=== PATIENT | male | born 1965 | race Caucasian/White ===

== ENCOUNTER 2023-12-15 06:18 | Observation (INO) ==
[~2023-12-15 06:18] MED LIST: Metoclopramide 5 MG/ML VIAL (10 mg) IV PRN; NS 0.45% 1000 ml BAG 1,000 ML IV SCH; Naloxone 0.4 mg VIAL 0.4 mg/ml 1 ml VIAL IV PRN; Ondansetron 4 mg VIAL 2 MG/ML 2 ml VIAL IV PRN; ROPIVACAINE 5 MG/ML 30 ML BTL (0.5%) ONE; fentaNYL 100 mcg/2 ml 50 MCG/ML VIAL IV PRN
[2023-12-15] MEDS ORDERED: ROPIVACAINE 5 MG/ML 30 ML BTL (0.5%) ONE ×2 (06:46→07:22)
[2023-12-15] MEDS ORDERED: Midazolam 2 mg/2 ml VIAL 1 mg/ml 2 ml VIAL (2 mg) ONE ×2 (06:47→07:22)
[2023-12-15] MEDS ORDERED: fentaNYL 100 mcg/2 ml 50 MCG/ML VIAL ONE ×2 (06:47→07:22)
[2023-12-15] MEDS ORDERED: Lidocaine 2% PF 5 ML VIAL ONE ×3 (06:48→07:50)
[2023-12-15] MEDS ORDERED: Phenylephrine IV 10 MG/ML 1 ml VIAL ONE (06:48)
[2023-12-15] MEDS: Buffered Lidocaine 1% SYRIN 1 ml INTRADERM ONE (06:49)
[2023-12-15] MEDS ORDERED: Tranexamic Acid 1 GM/100ML BAG 2,000 MG/200 ML BAG IV ONE (07:04)
[2023-12-15] MEDS ORDERED: ceFAZolin 2 GM PREMIX 2 GM/50 ML BAG ONE (07:04)
[2023-12-15 07:07] LABS: Rapid COVID-19 Molecular Undetected (Undetected)
[2023-12-15] MEDS: Lactated Ringers 1000 ml BAG 1,000 ML IV SCH ×2 (07:11→13:25)
[2023-12-15] MEDS: Scopolamine 1 mg/72hr PATCH TRANSDERM ONE (07:12)
[2023-12-15] MEDS ORDERED: Famotidine IV 10 MG/ML 2 ml VIAL (20 mg) ONE (07:32)
[2023-12-15] MEDS ORDERED: Bupivacaine-MPF SPINAL 7.5 MG/ML - 2ML AMP ONE (07:50)
[2023-12-15] MEDS ORDERED: Ondansetron 4 mg VIAL 2 MG/ML 2 ml VIAL ONE (08:13)
[2023-12-15] MEDS ORDERED: Metoclopramide 5 MG/ML VIAL (10 mg) ONE (08:13)
[2023-12-15] MEDS ORDERED: Dexamethasone IV 4 MG/ML VIAL 1 ml VIAL ONE (08:13)
[2023-12-15] MEDS ORDERED: Glycopyrrolate IV 0.2 MG/ML 1 ML VIAL ONE (08:13)
[2023-12-15] MEDS ORDERED: KETAMINE HCL 10 MG/ML 20 ml VIAL (200 MG) ONE (08:20)
[2023-12-15] MEDS ORDERED: Morphine 2 MG/ML SYRINGE IV PRN (09:11)
[2023-12-15] MEDS ORDERED: Ondansetron 4 mg VIAL 2 MG/ML 2 ml VIAL IV PRN (09:11)
[2023-12-15] MEDS ORDERED: Calcium Carb (TUMS) 500 mg CHEW TAB PO PRN (09:11)
[2023-12-15] MEDS ORDERED: Lactulose 30 ml UDC PO PRN (09:11)
[2023-12-15] MEDS ORDERED: Magnesium Hydroxide LIQ 30 ML UDC PO PRN (09:11)
[2023-12-15] MEDS ORDERED: Ondansetron ODT 4 mg TAB 4 MG TAB PO PRN (09:11)
[2023-12-15] MEDS ORDERED: Propofol 10 MG/ML 20 ML BTL ONE (09:23)
[2023-12-15] MEDS: Acetaminophen IV 1 GM/100ML 1,000 MG/100 ML BAG IV ONE (14:11)
[2023-12-15 15:25] VITALS: BP 120/79
[2023-12-15] MEDS: ceFAZolin 2 GM PREMIX 2 GM/50 ML BAG IV SCH (15:57)
[2023-12-15] MEDS ORDERED: Magnesium Hydroxide LIQ 30 ML UDC PO SCH (21:00)
[2023-12-16] MEDS ORDERED: Vitamin THERAPEUTIC TAB PO SCH (09:00)
== END 2023-12-15 17:46 | disposition home or self-care (01) ==
LOC: SSU 06:18 → OR 06:18
PROVIDERS: ADMIT Orthopaedic Surgery Adult Reconstructive Orthopaedic Surgery; ATTEND Orthopaedic Surgery Adult Reconstructive Orthopaedic Surgery